=== PATIENT | male | born 1980 | race Caucasian/White ===

== ENCOUNTER 2020-02-14 04:29 | Inpatient (IN) ==
[2020-02-14] MEDS ORDERED: INSULIN REGULAR, HUMAN 1 UNIT/0.01 ML UNIT IV ONE ×2 (04:34→06:02)
[2020-02-14] MEDS ORDERED: 0.9 % SODIUM CHLORIDE 1,000 ML IV ONE ×9 (04:34→20:21)
--- NOTE | 2020-02-14 05:11 | XRay Report ---
CLINICAL INFORMATION: Dyspnea COMPARISON: None. TECHNIQUE: Portable FINDINGS: The heart size, mediastinum and pulmonary vessels are unremarkable. The lungs are clear. There are no effusions. The bones and soft tissues are within normal limits. IMPRESSION: Normal chest. Interpreted and Authenticated by: Les Bryan 02/14/20
[2020-02-14 05:18] LABS: Basophils # (Auto) 0.06 K/mcL (0.00-0.30); Basophils % (Auto) 0.4 % (0.0-2.0); Eosinophils # (Auto) 0 K/mcL (0.00-0.70); Eosinophils % (Auto) 0 % (0.0-7.0); Hematocrit 65.5 % (40.1-51.0); Hemoglobin 18.4 g/dL (13.7-17.5); Lymphocytes # (Auto) 1.19 K/mcL (1.50-4.80); Lymphocytes % (Auto) 7.8 % (15.5-49.0); Mean Cell Volume 103.8 fL (80.0-100.0); Mean Corpuscular HGB Conc 28.1 g/dL (31.0-36.0); Mean Platelet Volume 11.5 fL (7.4-10.4); Monocytes # (Auto) 1.04 K/mcL (0.10-0.90); Monocytes % (Auto) 6.8 % (1.0-12.0); Platelet Count 430 K/mcL (140-440); RBC 6.31 M/mcL (4.63-6.08); Red Cell Distribution Width 13.4 % (11.5-14.5); WBC 15.4 K/mcL (4.50-11.00)
[2020-02-14] MEDS ORDERED: INSULIN REGULAR, HUMAN 50 UNIT in 0.9 % SODIUM CHLORIDE 99.5 ML IV ONE (06:02)
[2020-02-14 06:03] LABS: ALT/SGPT 80 U/l (0-40); AST/SGOT 56 U/l (0-37); Albumin 4.5 gm/dL (3.2-5.2); Albumin/Globulin Ratio 1.4 (1.0-2.3); Alkaline Phosphatase 219 U/L (39-117); Bilirubin,Total 0.4 mg/dL (0.0-1.0); Blood Urea Nitrogen 44 mg/dl (6-20); Calcium 10.3 mg/dl (8.6-10.4); Carbon Dioxide 11 mmol/L (22-30); Chloride 79 mmol/L (96-108); Globulin 3.3 gm/dL (2.2-3.7); Glomerular Filtration Rate 19
[2020-02-14] MEDS ORDERED: VANCOMYCIN 1,000 MG in 0.9 % SODIUM CHLORIDE 250 ML IV ONE (06:05)
[2020-02-14] MEDS ORDERED: LEVOFLOXACIN 750 MG/150 ML BAG IV ONE (06:05)
[2020-02-14] MEDS ORDERED: PIPERACILLIN SODIUM/TAZOBACTAM 3.375 GM in DEXTROSE 5% IN WATER 50 ML IV ONE (06:05)
--- NOTE | 2020-02-14 06:11 | Emergency Department Note ---
Altered Mental Status HPI General Chief Complaint: Altered Mental Status Stated Complaint: altered mental status Time Seen by Provider: 02/14/20 04:34 Source: family, EMS and RN notes reviewed Mode of arrival: EMS Limitations: altered mental status History of Present Illness HPI Narrative: Narrative: This patient was brought in by EMS for altered mental status. Patient cannot really talk to us much. Mother states that the patient has been drinking excessive amounts of fluid for the last couple of months. There is a strong history of diabetes in the family and this patient's blood sugars reading high on the Accu-Chek. Mother does not state any other specific symptoms going on. MD complaint: altered mental status, confusion and decreased responsiveness Onset (ago): month(s) Timing confirmed by: family member Severity: severe Consistency of Symptoms: getting worse Context: unknown (Patient has been drinking excessive fluids for the last couple of months and his blood sugar is registering high on Accu-Chek. Most likely this is diabetic ketoacidosis.) Related Data Home Medications Medication Instructions Recorded Confirmed albuterol sulfate 2 puff INHALATION PRN PRN 02/14/20 02/14/20 amitriptyline 25 mg PO QDAY 02/14/20 02/14/20 amlodipine 50 mg PO QDAY 02/14/20 02/14/20 duloxetine 60 mg PO QDAY 02/14/20 02/14/20 fenofibrate 145 mg PO QDAY 02/14/20 02/14/20 fluticasone propionate 1 puff INHALATION BID 02/14/20 02/14/20 lamotrigine 50 mg PO DAILY 02/14/20 02/14/20 lamotrigine 100 mg PO HS 02/14/20 02/14/20 levocetirizine [Allergy Relief 5 mg PO QDAY 02/14/20 02/14/20 (levocetirizin)] rizatriptan 10 mg PO PRN PRN 02/14/20 02/14/20 Allergies Allergy/AdvReac Type Severity Reaction Status Date / Time red dye Allergy Unknown Verified 02/14/20 07:23 valproic acid Allergy Unknown Unknown Verified 02/14/20 07:23 bha Allergy Unknown Uncoded 02/14/20 07:23 bht Allergy Unknown Uncoded 02/14/20 07:23 msg Allergy Unknown Uncoded 02/14/20 07:23 tbhq Allergy Unknown Uncoded 02/14/20 07:23 Review of Systems ROS ROS Narrative: Narrative: Limitations: ROS unobtainable due to patients medical condition [facility] Narrative Patient History Narrative: Narrative: Medical/Surgical/Family History All Active Problems (Updated 02/14/20 @ 07:46 by José Miguel Rico MD) Diabetic ketoacidosis (Acute) Family History (Updated 02/14/20 @ 06:09 by José Miguel Rico MD) Other Diabetes Social History Smoking Status: Never smoker Exam Narrative Narrative: Narrative: General Limitations: altered mental status General appearance: obtunded and sleepy Head Head: atraumatic, normocephalic and normal inspection Eye Eye: Present normal appearance; Absent scleral icterus and conjunctival injection ENT ENT: Present mucous membranes dry Neck Neck: Present normal inspection Chest Chest: Present normal inspection and symmetric chest wall rise Respiratory Respiratory: Present normal lung sounds bilaterally; Absent respiratory distress, rales/crackles and wheezes Cardiovascular Cardiovascular: Present regular rate, normal rhythm and normal heart sounds Adbominal Abdominal: Present soft; Absent distention and tenderness Skin Skin: Present dry; Absent diaphoresis Course Vital Signs Vital signs: Vital Signs Temperature 98.5 F 02/14/20 04:29 Pulse Rate 122 H 02/14/20 04:29 Respiratory Rate 37 H 02/14/20 04:29 Blood Pressure 120/93 02/14/20 04:29 Pulse Oximetry (%) 91 02/14/20 04:29 Temperature 98.5 F 02/14/20 04:29 Pulse Rate 121 H 02/14/20 07:32 Respiratory Rate 31 H 02/14/20 07:32 Blood Pressure 125/103 02/14/20 07:32 Pulse Oximetry (%) 93 02/14/20 07:32 [facility] MDM Narrative Medical decision making narrative: Narrative: We started insulin and an insulin drip on arrival in the emergency room. Also started hydrating the patient. Within an hour he is able to open his eyes and only say okay. He seemed to be gradually improving. We did do blood cultures and covered him with some antibiotics since his lactic acid was so high. Most likely he is not septic but will cover it anyway. He will be admitted to the ICU by Dr. Dailey. Differential Diagnosis Differential Diagnosis: Combination of polyuria and a blood sugar reading high and Accu-Chek makes diabetic ketoacidosis the primary diagnosis to consider. Lab Data Lab results reviewed: Yes I reviewed the patient's lab results. Lab results narrative: Blood sugar was 1752 with acetone of 9 and lactic acid of 7.7 bicarb of 11. pH was only 7.27 Result diagrams: 02/14/20 04:34 02/14/20 04:34 Labs: Lab Results 02/14/20 02/14/20 02/14/20 Range/Units 04:34 04:34 04:34 WBC 15.4 H (4.50-11.00) K/mcL RBC 6.31 H (4.63-6.08) M/mcL Hgb 18.4 H (13.7-17.5) g/dL Hct 65.5 H (40.1-51.0) % MCV 103.8 H (80.0-100.0) fL MCH 29.2 (26.0-34.0) pg MCHC 28.1 L (31.0-36.0) g/dL RDW 13.4 (11.5-14.5) % Plt Count 430 (140-440) K/mcL MPV 11.5 H (7.4-10.4) fL Gran % 85.0 H (38.0-78.0) % Lymph % (Auto) 7.8 L (15.5-49.0) % [place] % (Auto) 6.8 (1.0-12.0) % Eos % (Auto) 0 (0.0-7.0) % Baso % (Auto) 0.4 (0.0-2.0) % Gran # 13.06 H (1.80-8.00) K/mcL Lymph # (Auto) 1.19 L (1.50-4.80) K/mcL [place] # (Auto) 1.04 H (0.10-0.90) K/mcL Eos # (Auto) 0 (0.00-0.70) K/mcL Baso # (Auto) 0.06 (0.00-0.30) K/mcL VBG Lactic Acid 7.7 H* (0.5-2.0) mmol/L Sodium 131 L (133-145) mmol/L Potassium 5.6 H (3.3-5.1) mmol/L Chloride 79 L (96-108) mmol/L Carbon Dioxide 11 L (22-30) mmol/L Anion Gap 41.0 H (8-16) BUN 44 H (6-20) mg/dl Creatinine 3.8 H (0.7-1.2) mg/dl GFR Calculation 19 Glucose 1750 H* (70-105) mg/dL Calcium 10.3 (8.6-10.4) mg/dl Total Bilirubin 0.4 (0.0-1.0) mg/dL AST 56 H (0-37) U/l ALT 80 H (0-40) U/l Alkaline Phosphatase 219 H (39-117) U/L Total Protein 7.8 (5.9-8.4) gm/dL Albumin 4.5 (3.2-5.2) gm/dL Globulin 3.3 (2.2-3.7) gm/dL Albumin/Globulin Ratio 1.4 (1.0-2.3) Beta-Hydroxybutyrate 9.45 H (< 0.27) mmol/L Radiology Data Radiology results reviewed: Yes I reviewed the patient's radiology results. Radiology results narrative: Chest x-ray is unremarkable CC TIME Critical Care Time Critical Care Time: Yes Total Critical Care Time: 60 Attestation: This patient was nearly comatose from diabetic ketoacidosis and required intensive management. Discharge Plan Patient/Caregiver Discharge Instructions Pt seen by [employer]/PA only: No Clinical Impression: Diabetic ketoacidosis Patient Disposition: Xfer As Inpt ([facility]) Prescriptions: No Action amitriptyline 25 mg Tablet 25 mg PO QDAY RF: 0 lamotrigine 100 mg Tablet 100 mg PO HS RF: 0 lamotrigine 50 mg Tablet,Disintegrating 50 mg PO DAILY RF: 0 duloxetine 60 mg Capsule,Delayed Release(Dr/Ec) 60 mg PO QDAY RF: 0 amlodipine 10 mg Tablet 50 mg PO QDAY RF: 0 fenofibrate 150 mg Capsule 145 mg PO QDAY RF: 0 fluticasone propionate 220 mcg/actuation Hfa Aerosol Inhaler 1 puff INHALATION BID RF: 0 rizatriptan 10 mg Tablet 10 mg PO PRN PRN (Reason: Headache) RF: 0 albuterol sulfate 90 mcg/actuation Hfa Aerosol Inhaler 2 puff INHALATION PRN PRN (Reason: Shortness Of Breath) RF: 0 levocetirizine [Allergy Relief (levocetirizin)] 5 mg Tablet 5 mg PO QDAY RF: 0
[2020-02-14 06:23] LABS: Glucose 1750 mg/dL (70-105)
[2020-02-14 06:28] LABS: Beta Hydroxybutyrate 9.45 mmol/L (< 0.27)
[2020-02-14 08:15] LABS: POC Blood Urea Nitrogen 43 mg/dl (6-20); POC CO2 13 mmol/L (22-30); POC Calcium, Ionized 1.08 mmol/L (1.16-1.32); POC Chloride 111 mmol/L (96-108); POC Creatinine 3.4 mg/dl (0.7-1.2); POC Glucose, Random > 700 mg/dL (70-105); POC Potassium 3.9 mmol/L (3.3-5.1); POC Sodium 143 mmol/L (133-145)
--- NOTE | 2020-02-14 08:17 | Internal Med History&Physical ---
HPI History of Present Illness Patient information: Note initiated : 02/14/20 at 8:17 am Service Date, if different from initiated Date: [] Patient: Valentín Daniel a 39 y/o M admitted on for Altered Mental Status. Chief Complaint: Nausea weakness History of present illness: Mr. Daniel is a 39 year old M with no significant prior medical history other than anxiety disorder/hypertension/migraine who presents to the ER with 2 weeks onset of progressive weakness/nausea that has restricted his activities and has not been able to work at his job. Over the last couple of days he has been increasingly tired extremely thirsty and has been drinking excess amount of fluids. Over the last 12 hours he has become more incoherent lethargic and drowsy. Patient was brought into the ER where initial work-up was consistent with severe DKA with blood sugars over 1700/pH 7.28/creatinine 3.6, lactic acid 7.7/anion gap 41 Patient was started on DKA protocol and subsequently hospitalist service was consulted At the time of my evaluation patient is accompanied with his mother Lyle. She is able to provide most of the history as patient is very drowsy lethargic and barely able to open eyes or respond to questions review of systems. Mother denies noticing fever, rash, substance abuse. Family was wondering about his symptoms that has been progressing and they saw primary care physician yesterday. Review of systems 10 point review system was performed and is negative except for ones cussed above Past medical Prediabetic Obesity HLD HTN Bipolar disorder Migraine Seasonal allergic rhinitis Asthma Gastritis Hepatic steatosis Acute cholecystitis status post surgery 2018 Intermittent headache History of undescended testicle surgery Renal stone surgery family history Multiple family members with history of diabetes Mother Graves' disease/bipolar Father HTN/DM type II Arthritis grandmother Social history No history of smoking alcoholism Works at a grocery store [facility] All Active Problems (Updated 02/14/20 @ 07:46 by José Miguel Rico MD) Diabetic ketoacidosis (Acute) Family History (Updated 02/14/20 @ 06:09 by José Miguel Rico MD) Other Diabetes Social History smoking status: Never smoker MEDS/ALLERGIES Home Medications and Allergies Home Medications Medication Instructions Recorded Confirmed Type albuterol sulfate 2 puff INHALATION PRN PRN 02/14/20 02/14/20 History amitriptyline 25 mg PO QDAY 02/14/20 02/14/20 History amlodipine 50 mg PO QDAY 02/14/20 02/14/20 History duloxetine 60 mg PO QDAY 02/14/20 02/14/20 History fenofibrate 145 mg PO QDAY 02/14/20 02/14/20 History fluticasone propionate 1 puff INHALATION BID 02/14/20 02/14/20 History lamotrigine 50 mg PO DAILY 02/14/20 02/14/20 History lamotrigine 100 mg PO HS 02/14/20 02/14/20 History levocetirizine [Allergy Relief 5 mg PO QDAY 02/14/20 02/14/20 History (levocetirizin)] rizatriptan 10 mg PO PRN PRN 02/14/20 02/14/20 History Allergies Allergy/AdvReac Type Severity Reaction Status Date / Time bupropion [From Wellbutrin] Allergy Severe Swelling Verified 02/14/20 12:00 red dye Allergy Unknown Verified 02/14/20 07:23 valproic acid AdvReac Intermediate Nausea Verified 02/14/20 12:00 bha Allergy Unknown Uncoded 02/14/20 07:23 bht Allergy Unknown Uncoded 02/14/20 07:23 msg Allergy Unknown Uncoded 02/14/20 07:23 tbhq Allergy Unknown Uncoded 02/14/20 07:23 EXAM Constitutional Vitals: Temp Pulse Resp BP Pulse Ox 98.5 F 121 H 31 H 125/103 93 02/14/20 04:29 02/14/20 07:32 02/14/20 07:32 02/14/20 07:32 02/14/20 07:32 Confused lethargic and drowsy Head normocephalic, Oral cavity dry No ear nose discharge Eye movement symmetrical Neck supple no lymphadenopathy S1-S2 tachycardic Tachypneic and labored breathing Pendulous but nontender abdomen Lower extremity no cyanosis clubbing or joint swelling Skin no suspicious lesion Psych anxious and confused Neuro could not be examined but moving all 4 extremities DATA Data Completed and Pending Labs: Labs from last 24 hours 02/14/20 02/14/20 02/14/20 08:06 04:34 04:34 WBC RBC Hgb Hct POC Hct 54.0 MCV MCH MCHC RDW Plt Count MPV Gran % Lymph % (Auto) [place] % (Auto) Eos % (Auto) Baso % (Auto) Gran # Lymph # (Auto) [place] # (Auto) Eos # (Auto) Baso # (Auto) VBG Lactic Acid 7.7 H* POC Sodium 143 Sodium 131 L POC Potassium 3.9 Potassium 5.6 H POC Chloride 111 H Chloride 79 L Carbon Dioxide 11 L POC Total CO2 13 L Anion Gap 41.0 H POC BUN 43 H BUN 44 H Creatinine 3.8 H POC Creatinine 3.4 H GFR Calculation 19 Glucose 1750 H* POC Glucose > 700 H* Calcium 10.3 POC WB Ioniz Calcium 1.08 L Total Bilirubin 0.4 AST 56 H ALT 80 H Alkaline Phosphatase 219 H Total Protein 7.8 Albumin 4.5 Globulin 3.3 Albumin/Globulin Ratio 1.4 Beta-Hydroxybutyrate 9.45 H 02/14/20 04:34 WBC 15.4 H RBC 6.31 H Hgb 18.4 H Hct 65.5 H POC Hct MCV 103.8 H MCH 29.2 MCHC 28.1 L RDW 13.4 Plt Count 430 MPV 11.5 H Gran % 85.0 H Lymph % (Auto) 7.8 L [place] % (Auto) 6.8 Eos % (Auto) 0 Baso % (Auto) 0.4 Gran # 13.06 H Lymph # (Auto) 1.19 L [place] # (Auto) 1.04 H Eos # (Auto) 0 Baso # (Auto) 0.06 VBG Lactic Acid POC Sodium Sodium POC Potassium Potassium POC Chloride Chloride Carbon Dioxide POC Total CO2 Anion Gap POC BUN BUN Creatinine POC Creatinine GFR Calculation Glucose POC Glucose Calcium POC WB Ioniz Calcium Total Bilirubin AST ALT Alkaline Phosphatase Total Protein Albumin Globulin Albumin/Globulin Ratio Beta-Hydroxybutyrate A/P Narrative A/P Narrative: * DKA- initiate management per protocol. Elevated anion gap at pH 7.28, 41/bicarb 11/blood sugar 1750, elevated ketones. On insulin drip. Management per protocol * Acute renal failure, creatinine 3.4. Unclear baseline. Await records from [facility] * Sepsis from unclear source. Start antibiotic coverage after cultures * History of reactive disease continue bronchodilators * Anxiety disorder continue duloxetine * History of hypertension restart amlodipine once able to take orally * Full code * Prophylax Heparin Plan * ICU admit, patient critically ill with severe DKA * DKA management per protocol * Nephrology consult * Aggressive electrolyte replacement * Diabetic education * Keep n.p.o. Time Spent With Patient Time: Total time spent is greater than 50% in coordination of care (as documented) at patient's floor/unit and/or counseling patient: Total time spent with greater than 50% in coordination of care (as documented) at patient's floor/unit and/or counseling patient:: Greater than 35 minutes
[2020-02-14] MEDS ORDERED: amLODIPine 5 MG TABLET PO SCH (09:00)
[2020-02-14] MEDS ORDERED: ALBUTEROL SULFATE 200 PUFF INHALER INH PRN (10:15)
[2020-02-14] MEDS ORDERED: ONDANSETRON 4 MG ODT TABLET SL PRN (10:15)
[2020-02-14] MEDS ORDERED: MELATONIN 3 MG TABLET PO PRN (10:15)
[2020-02-14] MEDS ORDERED: 0.9 % SODIUM CHLORIDE 250 ML IV SCH ×4 (10:15→20:00)
[2020-02-14] MEDS ORDERED: AMITRIPTYLINE 25 MG TABLET PO SCH (10:15)
[2020-02-14] MEDS ORDERED: RIZATRIPTAN 10 MG TABLET PO PRN (10:15)
[2020-02-14] MEDS ORDERED: ACETAMINOPHEN 325 MG TABLET PO PRN (10:15)
[2020-02-14] MEDS ORDERED: POTASSIUM CHLORIDE 60 MEQ in DEXTROSE 5% IN WATER 500 ML IV PRN (10:15)
[2020-02-14] MEDS ORDERED: MULTIVIT,THER IRON,CA,FA & MIN 1 TABLET PO SCH (10:15)
[2020-02-14] MEDS ORDERED: CALCIUM CHLORIDE 1,000 MG/10 ML SYRINGE IV PRN (10:15)
[2020-02-14] MEDS ORDERED: DEXTROSE 5%-1/2NS 1,000 ML IV SCH (10:15)
[2020-02-14] MEDS ORDERED: ONDANSETRON 4 MG/2 ML VIAL IV PRN (10:15)
[2020-02-14] MEDS ORDERED: MAGNESIUM SULFATE 2 GM/50 ML BAG IV PRN (10:15)
[2020-02-14] MEDS ORDERED: POTASSIUM CHLORIDE 20 MEQ PACKET PO PRN (10:15)
[2020-02-14] MEDS ORDERED: POLYETHYLENE GLYCOL 3350 17 GM PACKET PO PRN (10:15)
[2020-02-14] MEDS ORDERED: BISACODYL 10 MG SUPP.RECT PR PRN (10:15)
[2020-02-14] MEDS: 0.45 % SODIUM CHLORIDE 1,000 ML IV SCH ×3 (11:02→21:16)
[2020-02-14] MEDS: ACETAMINOPHEN 650 MG/65 ML BOTTLE IV PRN ×2 (11:04→16:54)
[2020-02-14 11:57] LABS: Beta Hydroxybutyrate 4.16 mmol/L (< 0.27)
[2020-02-14] MEDS: PIPERACILLIN SODIUM/TAZOBACTAM 2.25 GM in DEXTROSE 5% IN WATER 50 ML IV SCH ×2 (12:19→17:40)
[2020-02-14] MEDS: INSULIN REGULAR, HUMAN 50 UNIT in 0.9 % SODIUM CHLORIDE 99.5 ML IV SCH ×2 (12:28→20:12)
[2020-02-14 12:36] LABS: Appearance,Urine CLEAR; Bacteria,Urine 0 /hpf (0); Bilirubin,Urine NEG (NEG); Color,Urine YELLOW; Culture Indicated,Urine NO; Glucose,Urine (UA) >=500 mg/dL (NEG); Ketones,Urine 5/TR mg/dL (NEG); Leukocyte Esterase,Urine NEG /uL (NEG); Nitrate,Urine NEG (NEG); Protein,Urine 30 mg/dL (NEG); Specific Gravity,Urine 1.028 (1.000-1.035); Urine Blood 0.2 mg/dL (<0.03); Urine RBC 1 /hpf (0-1); Urine Squamous Epithelial Cell < 1 /hpf (0-4); Urine WBC 1 /hpf (0-4); Urobilinogen,Urine NEG (NEG)
[2020-02-14 12:46] LABS: Estimated Average Glucose(eAG) 473 mg/dL; Hemoglobin A1C > 18.1 % HGB (4.0-6.0)
[2020-02-14] MEDS: 0.9 % SODIUM CHLORIDE 10 ML SYRINGE IV SCH ×2 (13:00→21:49)
[2020-02-14] MEDS ORDERED: diphenhydrAMINE 50 MG/ML VIAL IV ONE (13:24)
[2020-02-14] MEDS ORDERED: 0.9 % SODIUM CHLORIDE 10 ML SYRINGE IV PRN (13:38)
[2020-02-14 13:52] LABS: ABG Methemoglobin 0.1 % (0.4-1.5); Total Hemoglobin 17.3 gm/dL (13.5-16.5); VBG Base Excess -4.8 (-2.0-2.0); VBG HCO3 19.8 mmol/L (24.0-28.0); VBG Oxygen Saturation 72.6 % (40.0-70.0); VBG PCO2 35.8 mmHg (41.0-51.0); VBG PH 7.36 U (7.32-7.42); VBG PO2 43 mmHg (25-40); VBG Total CO2 20.9 mmol/L (25.0-29.0)
--- NOTE | 2020-02-14 14:03 | General Surgery Procedure Note ---
Date of procedure: Note initiated : 02/14/20 at 2:00 pm Service Date, if different from initiated Date: [] Pre-op diagnosis: diabetic ketoacidosis; renal failure Post-op diagnosis: other (diabetic ketoacidosis; renal failure) Procedure: left subclavian central venous access catheter placement Anesthesia: local (1% Xylocaine local infiltration) Surgeon: Bennie Trejo Pathology: none sent Description of procedure: the patient was significantly disoriented and uncooperative. He was given 25 mg of Benadryl IV just for mild sedation. Under sterile conditions the left subclavian area and neck were prepped and draped. The left subclavian vein was accessed with a single stick. The guidewire was placed in the vein was dilated. The catheter was placed over the guidewire into the superior vena cava. All ports were flushed and aspirated and power ports were placed. The catheter was sutured in place and covered with Tegaderm. Chest x-ray was done to confirm position. Condition: critical Disposition: ICU
[2020-02-14 14:37] LABS: ALT/SGPT 58 U/l (0-40); AST/SGOT 59 U/l (0-37); Albumin 3.4 gm/dL (3.2-5.2); Albumin/Globulin Ratio 1.3 (1.0-2.3); Alkaline Phosphatase 133 U/L (39-117); Bilirubin,Direct 0.2 mg/dL (0.0-0.3); Bilirubin,Total 0.4 mg/dL (0.0-1.0); Blood Urea Nitrogen 51 mg/dl (6-20); Calcium 8.9 mg/dl (8.6-10.4); Carbon Dioxide 19 mmol/L (22-30); Chloride 103 mmol/L (96-108); Globulin 2.6 gm/dL (2.2-3.7); Glomerular Filtration Rate 17; Lactate Dehydrogenase 276 U/L (94-250); Phosphorous 1.1 mg/dL (2.7-4.5); Uric Acid 14.5 mg/dL (2.5-8.0)
[2020-02-14 14:52] LABS: Glucose 1177 mg/dL (70-105); Triglycerides 1087 mg/dl (<150)
--- NOTE | 2020-02-14 14:52 | XRay Report ---
CLINICAL INFORMATION: Central Line Placement COMPARISON: 02/14/2020 FINDINGS: Left subclavian central line tip overlies the azygos SVC junction. There is no pneumothorax, hemorrhage or other common complication. Cardiomediastinal silhouette and pulmonary vessels are normal. Lungs are clear. IMPRESSION: Left subclavian central line tip overlies the SVC azygos junction. No complication line from placement Interpreted and Authenticated by: Les Bryan 02/14/20
--- NOTE | 2020-02-14 15:28 | Cat Scan Report ---
CLINICAL INFORMATION: Sepsis COMPARISON: None. TECHNIQUE: 0.625 mm helical slices were obtained from the lung apices through the subtrochanteric regions of the femurs. Following reconstruction, 2.5 mm sagittal, coronal and axial reformatted images were processed and reviewed at multiple windows and levels. 7 mm MIP reconstructions were obtained through the lungs to optimize nodule detection.The exam was performed using radiation dose optimization techniques including, but not limited to, automated exposure control, adjustment of the mA and/or kV according to patient size and use of iterative reconstruction technique. FINDINGS: Pulmonary parenchymal windows show the lungs are clear. There are no effusions. The mediastinal windows show the heart is normal in size with no calcific plaque in the coronary arteries. The noncontrasted thoracic aorta and pulmonary arteries are normal in diameter. There is no adenopathy in the mediastinal hilar or axillary regions. Esophagus is grossly normal. The thyroid is unremarkable. Left subclavian central line tip is at the brachiocephalic SVC junction.. Abdominal images show moderate hepatomegaly with diffuse fatty change. No focal hepatic lesion. The gallbladder is surgically absent. Intrahepatic and common bile ducts are normal caliber: CBD is 6 mm. There is diffuse inflammation throughout the pancreas with a large amount of fluid in the peripancreatic fat planes distention into the mesentery, lesser sac and both anterior pararenal spaces. Findings compatible with severe pancreatitis. There is 4 mm nonobstructing stone is a mid calyx of the left kidney. The remainder of both kidneys, adrenal glands, spleen and aorta are normal in size configuration and attenuation without focal lesion. There is no free air or adenopathy. Pelvic images show Gilmore catheter properly positioned within the bladder. The urinary bladder is normal. Prostate and seminal vesicles are unremarkable. The stomach, small bowel, appendix region and large bowel are normal. The bone windows show no osseous abnormalities throughout the chest, abdomen or pelvis. IMPRESSION: 1. Severe pancreatitis featuring inflammation throughout the pancreas and large amount of fluid in the peripancreatic fat planes, mesentery, lesser sac and anterior pararenal spaces. Correlate with amylase and lipase. 2. 4 mm nonobstructing stone mid calyx left kidney. 3. Moderate hepatomegaly with diffuse fatty change Interpreted and Authenticated by: Les Bryan 02/14/20
[2020-02-14] MEDS ORDERED: POTASSIUM PHOSPHATE 40 MEQ in DEXTROSE 5% IN WATER 500 ML IV PRN (15:32)
[2020-02-14] MEDS: DOCUSATE SODIUM 100 MG CAPSULE PO SCH ×2 (16:10→21:37)
[2020-02-14] MEDS: FLUTICASONE HFA 220MCG INHALER INH SCH ×2 (16:11→21:37)
[2020-02-14] MEDS: WATER IV PRN ×2 (16:17→20:17)
[2020-02-14] MEDS: DEXTROSE 5% IV PRN ×2 (16:17→20:17)
[2020-02-14] MEDS: POTASSIUM PHOSPHATE IV PRN ×2 (16:17→20:17)
[2020-02-14] MEDS: HEPARIN 5,000 UNIT/ML VIAL SQ SCH ×2 (16:20→21:43)
[2020-02-14] MEDS ORDERED: NOREPINEPHRINE BITARTRATE 4 MG/4 ML VIAL IV ONE (19:43)
--- NOTE | 2020-02-14 19:47 | Nephrology History & Physical ---
HPI History of Present Illness Patient information: Note initiated : 02/14/20 at 7:47 pm Service Date, if different from initiated Date: [] Patient: Valentín Daniel a 39 y/o M admitted on 02/14/20 for Altered Mental Status. Chief Complaint: History of present illness: History obtained from review of chart, discussion with RN/ medical staff as the patient is encephalopathic. Mr. Daniel is a 39 year old M w hx of HTN, pre diabetes, obesity, presented to the ED with fatigue/ thirst/ progressive confusion. He was admitted for management of DKA/ encephalopathy. I was asked to see him for ANTONIA. Below obtained from Dr. Le's note Past medical Prediabetic Obesity HLD HTN Bipolar disorder Migraine Seasonal allergic rhinitis Asthma Gastritis Hepatic steatosis Acute cholecystitis status post surgery 2018 Intermittent headache History of undescended testicle surgery Renal stone surgery family history Multiple family members with history of diabetes Mother Graves' disease/bipolar Father HTN/DM type II Arthritis grandmother Social history No history of smoking alcoholism Works at a [employer] Review of Systems ROS unobtainable: due to mental status PFSH PFSH All Active Problems (Updated 02/14/20 @ 21:07 by Tamika Mak MD) Encephalopathy (Acute) Acidosis, metabolic (Acute) Pancreatitis (Acute) ANTONIA (acute kidney injury) (Acute) Diabetic ketoacidosis (Acute) Family History (Updated 02/14/20 @ 06:09 by José Miguel Rico MD) Other Diabetes Social History smoking status: Never smoker MEDS/ALLERGIES Home Medications and Allergies Home Medications Medication Instructions Recorded Confirmed Type albuterol sulfate 2 puff INHALATION PRN PRN 02/14/20 02/14/20 History amitriptyline 25 mg PO QDAY 02/14/20 02/14/20 History amlodipine 5 mg PO QDAY 02/14/20 02/14/20 History duloxetine 60 mg PO QDAY 02/14/20 02/14/20 History fenofibrate 145 mg PO QDAY 02/14/20 02/14/20 History fluticasone propionate 1 puff INHALATION BID 02/14/20 02/14/20 History lamotrigine 50 mg PO DAILY 02/14/20 02/14/20 History lamotrigine 100 mg PO HS 02/14/20 02/14/20 History levocetirizine [Allergy Relief 5 mg PO QDAY 02/14/20 02/14/20 History (levocetirizin)] rizatriptan 10 mg PO PRN PRN 02/14/20 02/14/20 History Allergies Allergy/AdvReac Type Severity Reaction Status Date / Time bupropion [From Wellbutrin] Allergy Severe Swelling Verified 02/14/20 12:00 red dye Allergy Unknown Verified 02/14/20 07:23 valproic acid AdvReac Intermediate Nausea Verified 02/14/20 12:00 bha Allergy Unknown Uncoded 02/14/20 07:23 bht Allergy Unknown Uncoded 02/14/20 07:23 msg Allergy Unknown Uncoded 02/14/20 07:23 tbhq Allergy Unknown Uncoded 02/14/20 07:23 Physical Examination Vital Signs Vital signs: Temp Pulse Resp BP Pulse Ox 39.6 C H 122 H 34 H 98/76 94 02/14/20 18:06 02/14/20 18:06 02/14/20 18:06 02/14/20 18:06 02/14/20 18:06 General Appearance General appearance: obese (BMI 30.3) EENT EENT: ATNC Additional Exam Additional exam: resp non labored respirations, 5L NC, no adventitous sounds over anterior aspect cv RRR, tachycardia, no edema abdomen soft, distended neuro alert, moves all extremities, confused Results Lab Results Result Diagrams: 02/14/20 04:34 02/14/20 13:11 Lab results: Most recent lab results Calcium 8.9 mg/dl (8.6-10.4) 02/14/20 13:11 Phosphorus 1.1 mg/dL (2.7-4.5) L 02/14/20 13:11 Magnesium 3.2 mg/dL (1.6-2.5) H 02/14/20 13:11 A/P Assessment and plan (1) ANTONIA (acute kidney injury): Status: Acute (2) Pancreatitis: Status: Acute (3) Acidosis, metabolic: Status: Acute Narrative A/P Narrative: Scr 4.1, unknown baseline Scr. non oliguric I/O 7.7L/1.25L ANTONIA multifactorial pre renal 2/2 DKA/ HHS and component of ATN in the setting of pancreatitis. 02/14/2020 ua no hematuria, +30protein CT a/p 02/13 There is 4 mm nonobstructing stone is a mid calyx of the left kidney. The remainder of both kidneys, adrenal glands, spleen and aorta are normal in size configuration and attenuation without focal lesion. *checking osmolality, calculate osmolar gap, received appropriate fluid resuscitation, continues on iv fluids and pressor *repeat RFP patient being transferred to higher level of care. no acute need for dialysis hemodynamics and volume at the time of my visit he was on pressor support. received ~ 8L fluids. acid-base Bicarbonate 19. metabolic acidosis, improving. abg / high b hydroxybutyrate, high lactate - improving BUN/ K 51/4.1 Ca 8.9, Mg 3.2 slightly elevated 2/2 ANTONIA Time Spent With Patient Time: Total time spent is greater than 50% in coordination of care (as documented) at patient's floor/unit and/or counseling patient:
[2020-02-14] MEDS ORDERED: VASOPRESSIN 20 UNIT in DEXTROSE 5% IN WATER 99 ML IV SCH (19:50)
[2020-02-14] MEDS ORDERED: VASOPRESSIN 20 UNIT/ML VIAL ONE (19:56)
[2020-02-14] MEDS ORDERED: NOREPINEPHRINE BITARTRATE 16 MG in 0.9 % SODIUM CHLORIDE 234 ML IV SCH (20:00)
[2020-02-14 20:02] LABS: C-Reactive Protein 4.6 mg/dl (0.0-0.8)
[2020-02-14 20:11] LABS: HDL Cholesterol 14 mg/dl (>40); Non-HDL Cholesterol 245 (LDL TARGET+30); Triglycerides 830 mg/dl (<150)
--- NOTE | 2020-02-14 20:56 | Transfer Summary ---
Discharge Provider Provider Patient information: Note initiated : 02/14/20 at 8:50 pm Service Date, if different from initiated Date: [] Patient: Valentín Daniel a 39 y/o M admitted on 02/14/20 for Altered Mental Status. Chief Complaint: Nausea, confusion Transfer diagnosis * Acute pancreatitis possibly secondary to hypertriglyceridemia. Likely associated hemorrhage with rapid deterioration and multiorgan system failure. * Circulatory shock-status post 9 L crystalloids/continue vasopressors to maintain map goal * Acute renal failure secondary to above. Creatinine 4.1 baseline creatinine 1 * DKA-ongoing management per protocol on insulin drip * Low phosphorus/potassium on aggressive IV replacement Brief hospital course Mr. 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 Over the last couple of days he has been i ncreasingly tired extremely thirsty and has been drinking excessive amount of fluids. Over the last 12 hours he has become more incoherent lethargic and drowsy. Patient was brought into the ER where initial work-up was consistent with severe DKA with blood sugars over 1750/pH 7.28/creatinine 3.6, lactic acid 7.7/anion gap 41 Patient was started on DKA protocol and subsequently hospitalist service was consulted At the time of my evaluation patient is accompanied with his mother Lyle. She is able to provide most of the history as patient is very drowsy lethargic and barely able to open eyes or respond to questions review of systems. Mother denies noticing fever, rash, substance abuse. Family was wondering about his symptoms that has been progressing and they saw primary care physician yesterday. Patient was admitted to ICU. Aggressive management per DKA protocol initiated. CT abdomen pelvis revealed severe pancreatitis, possibly precipitated by hypertriglyceridemia. Per family no history of alcoholism. Continue insulin drip/aggressive crystalloids, change IV fluids to 250/hour following additional 1 L bolus (total 6 L bolus) Around 630 patient's blood pressure started dropping to 70s. Vasopressors initiated after additional 2 L bolus. Total of 9 L crystalloids administered. Case discussed with on-call surgeon who recommended emergent transfer to tertiary center for further management in this young 39-year-old with severe pancreatitis along with multiorgan dysfunction including encephalopathy/acute kidney injury and a high risk mortality. Case was discussed with patient's mother on phone. Subsequently attempted transfer to [facility] in [facility], no beds available. Case discussed with [facility] honing machine operator semiautomatic Dr. Carrasco who accepted this patient for further management. Highly appreciate honing machine operator [employer]ia[employer] help in accepting this critical young patient for further management Date of admission: 02/14/20 10:15 Discharge date: 02/14/20 Consults: 02/14/20 Consult to Physician [CONS] Stat Comment: Consulting Provider: Edgardo Le Reason For Exam: Physician to Consult 02/14/20 13:25 Consult to Physician [CONS] Routine Comment: Consulting Provider: Bennie Trejo Reason For Exam: Physician to Consult Discharge Meds Discharge Medications Home Medications albuterol sulfate 2 puff INHALATION PRN PRN 02/14/20 [History Confirmed 02/14/20 Last Taken Unknown] amitriptyline 25 mg PO QDAY 02/14/20 [History Confirmed 02/14/20 Last Taken Unknown] amlodipine 5 mg PO QDAY 02/14/20 [History Confirmed 02/14/20 Last Taken Unknown] duloxetine 60 mg PO QDAY 02/14/20 [History Confirmed 02/14/20 Last Taken Unknown] fenofibrate 145 mg PO QDAY 02/14/20 [History Confirmed 02/14/20 Last Taken Unknown] fluticasone propionate 1 puff INHALATION BID 02/14/20 [History Confirmed 02/14/20 Last Taken Unknown] lamotrigine 50 mg PO DAILY 02/14/20 [History Confirmed 02/14/20 Last Taken Unknown] lamotrigine 100 mg PO HS 02/14/20 [History Confirmed 02/14/20 Last Taken Unknown] levocetirizine [Allergy Relief (levocetirizin)] 5 mg PO QDAY 02/14/20 [History Confirmed 02/14/20 Last Taken Unknown] rizatriptan 10 mg PO PRN PRN 02/14/20 [History Confirmed 02/14/20 Last Taken Unknown] COURSE Hospital Course Hospital course: . Discharge diagnosis: . Time Spent with Patient Time attestation: Total time spent providing and/or coordinating discharge se rvices: EXAM Constitutional Vitals: Temp Pulse Resp BP Pulse Ox 103.2 F H 122 H 34 H 98/76 94 02/14/20 18:06 02/14/20 18:06 02/14/20 18:06 02/14/20 18:06 02/14/20 18:06 Discharge Data Data Completed and Pending Labs on day of discharge: Labs from last 24 hours 02/14/20 02/14/20 02/14/20 19:52 18:45 18:45 WBC RBC Hgb Hct POC Hct MCV MCH MCHC RDW Plt Count MPV Gran % Lymph % (Auto) [place] % (Auto) Eos % (Auto) Baso % (Auto) Gran # Lymph # (Auto) [place] # (Auto) Eos # (Auto) Baso # (Auto) ABG Methemoglobin VBG pH VBG pCO2 VBG pO2 VBG HCO3 VBG Total CO2 VBG O2 Saturation VBG Base Excess VBG Lactic Acid Carboxyhemoglobin Total Hemoglobin O2 Delivery Level POC Sodium Sodium Pending POC Potassium Potassium Pending POC Chloride Chloride Pending Carbon Dioxide Pending POC Total CO2 Anion Gap Pending POC BUN BUN Pending Creatinine Pending POC Creatinine GFR Calculation Pending Glucose Pending POC Glucose Hemoglobin A1c Estim Average Glucose Osmolality 369 H Uric Acid Calcium Pending POC WB Ioniz Calcium Phosphorus Pending Magnesium Total Bilirubin Direct Bilirubin GGT AST ALT Alkaline Phosphatase Lactate Dehydrogenase C-Reactive Protein Total Protein Albumin Pending Globulin Albumin/Globulin Ratio Triglycerides Cholesterol LDL Cholesterol, Calc Non-HDL Cholesterol HDL Cholesterol Lipase Beta-Hydroxybutyrate Urine Color Urine Appearance Urine pH Ur Specific [place] Urine Protein Urine Glucose (UA) Urine Ketones Urine Occult Blood Urine Nitrate Urine Bilirubin Urine Urobilinogen Ur Leukocyte Esterase Urine RBC Urine WBC Ur Squamous Epith Cells Urine Bacteria Ur Culture Indicated? SARS-CoV-2 (PCR) Pending 02/14/20 02/14/20 02/14/20 18:45 18:45 13:11 WBC RBC Hgb Hct POC Hct MCV MCH MCHC RDW Plt Count MPV Gran % Lymph % (Auto) [place] % (Auto) Eos % (Auto) Baso % (Auto) Gran # Lymph # (Auto) [place] # (Auto) Eos # (Auto) Baso # (Auto) ABG Methemoglobin VBG pH VBG pCO2 VBG pO2 VBG HCO3 VBG Total CO2 VBG O2 Saturation VBG Base Excess VBG Lactic Acid 3.7 H Carboxyhemoglobin Total Hemoglobin O2 Delivery Level POC Sodium Sodium 145 POC Potassium Potassium 4.0 POC Chloride Chloride 103 Carbon Dioxide 19 L POC Total CO2 Anion Gap 23.0 H POC BUN BUN 51 H Creatinine 4.1 H POC Creatinine GFR Calculation 17 Glucose 1177 H* POC Glucose Hemoglobin A1c Estim Average Glucose Osmolality Uric Acid 14.5 H Calcium 8.9 POC WB Ioniz Calcium Phosphorus 1.1 L Magnesium 3.2 H Total Bilirubin 0.4 Direct Bilirubin 0.2 GGT 143 H AST 59 H ALT 58 H Alkaline Phosphatase 133 H Lactate Dehydrogenase 276 H C-Reactive Protein 4.6 H Total Protein 6.0 Albumin 3.4 Globulin 2.6 Albumin/Globulin Ratio 1.3 Triglycerides 830 H 1087 H Cholesterol 259 H LDL Cholesterol, Calc TNP Non-HDL Cholesterol 245 H HDL Cholesterol 14 L Lipase 2244 H Beta-Hydroxybutyrate Urine Color Urine Appearance Urine pH Ur Specific [place] Urine Protein Urine Glucose (UA) Urine Ketones Urine Occult Blood Urine Nitrate Urine Bilirubin Urine Urobilinogen Ur Leukocyte Esterase Urine RBC Urine WBC Ur Squamous Epith Cells Urine Bacteria Ur Culture Indicated? SARS-CoV-2 (PCR) 02/14/20 02/14/20 02/14/20 13:10 11:42 11:42 WBC RBC Hgb Hct POC Hct MCV MCH MCHC RDW Plt Count MPV Gran % Lymph % (Auto) [place] % (Auto) Eos % (Auto) Baso % (Auto) Gran # Lymph # (Auto) [place] # (Auto) Eos # (Auto) Baso # (Auto) ABG Methemoglobin 0.1 L TNP VBG pH 7.36 TNP VBG pCO2 35.8 L TNP VBG pO2 43 H TNP VBG HCO3 19.8 L TNP VBG Total CO2 20.9 L TNP VBG O2 Saturation 72.6 H TNP VBG Base Excess -4.8 L TNP VBG Lactic Acid Carboxyhemoglobin 4.2 H TNP Total Hemoglobin 17.3 H TNP O2 Delivery Level Not Reportable Not Reportable POC Sodium Sodium TNP POC Potassium Potassium TNP POC Chloride Chloride TNP Carbon Dioxide TNP POC Total CO2 Anion Gap TNP POC BUN BUN TNP Creatinine TNP POC Creatinine GFR Calculation TNP Glucose TNP POC Glucose Hemoglobin A1c Estim Average Glucose Osmolality Uric Acid TNP Calcium TNP POC WB Ioniz Calcium Phosphorus TNP Magnesium TNP Total Bilirubin TNP Direct Bilirubin TNP GGT TNP AST TNP ALT TNP Alkaline Phosphatase TNP Lactate Dehydrogenase TNP C-Reactive Protein Total Protein TNP Albumin TNP Globulin TNP Albumin/Globulin Ratio TNP Triglycerides TNP Cholesterol LDL Cholesterol, Calc Non-HDL Cholesterol HDL Cholesterol Lipase Beta-Hydroxybutyrate Urine Color Urine Appearance Urine pH Ur Specific [place] Urine Protein Urine Glucose (UA) Urine Ketones Urine Occult Blood Urine Nitrate Urine Bilirubin Urine Urobilinogen Ur Leukocyte Esterase Urine RBC Urine WBC Ur Squamous Epith Cells Urine Bacteria Ur Culture Indicated? SARS-CoV-2 (PCR) 02/14/20 02/14/20 02/14/20 11:00 10:33 08:06 WBC RBC Hgb Hct POC Hct 54.0 MCV MCH MCHC RDW Plt Count MPV Gran % Lymph % (Auto) [place] % (Auto) Eos % (Auto) Baso % (Auto) Gran # Lymph # (Auto) [place] # (Auto) Eos # (Auto) Baso # (Auto) ABG Methemoglobin VBG pH VBG pCO2 VBG pO2 VBG HCO3 VBG Total CO2 VBG O2 Saturation VBG Base Excess VBG Lactic Acid Carboxyhemoglobin Total Hemoglobin O2 Delivery Level POC Sodium 143 Sodium POC Potassium 3.9 Potassium POC Chloride 111 H Chloride Carbon Dioxide POC Total CO2 13 L Anion Gap POC BUN 43 H BUN Creatinine POC Creatinine 3.4 H GFR Calculation Glucose POC Glucose > 700 H* Hemoglobin A1c > 18.1 H Estim Average Glucose 473 Osmolality Uric Acid Calcium POC WB Ioniz Calcium 1.08 L Phosphorus Magnesium Total Bilirubin Direct Bilirubin GGT AST ALT Alkaline Phosphatase Lactate Dehydrogenase C-Reactive Protein Total Protein Albumin Globulin Albumin/Globulin Ratio Triglycerides Cholesterol LDL Cholesterol, Calc Non-HDL Cholesterol HDL Cholesterol Lipase Beta-Hydroxybutyrate 4.16 H Urine Color Yellow Urine Appearance Clear Urine pH 5.0 Ur Specific [place] 1.028 Urine Protein 30 A Urine Glucose (UA) >=500 A Urine Ketones 5/tr A Urine Occult Blood 0.2 A Urine Nitrate Neg Urine Bilirubin Neg Urine Urobilinogen Neg Ur Leukocyte Esterase Neg Urine RBC 1 Urine WBC 1 Ur Squamous Epith Cells < 1 Urine Bacteria 0 Ur Culture Indicated? No SARS-CoV-2 (PCR) 02/14/20 02/14/20 02/14/20 04:34 04:34 04:34 WBC 15.4 H RBC 6.31 H Hgb 18.4 H Hct 65.5 H POC Hct MCV 103.8 H MCH 29.2 MCHC 28.1 L RDW 13.4 Plt Count 430 MPV 11.5 H Gran % 85.0 H Lymph % (Auto) 7.8 L [place] % (Auto) 6.8 Eos % (Auto) 0 Baso % (Auto) 0.4 Gran # 13.06 H Lymph # (Auto) 1.19 L [place] # (Auto) 1.04 H Eos # (Auto) 0 Baso # (Auto) 0.06 ABG Methemoglobin VBG pH VBG pCO2 VBG pO2 VBG HCO3 VBG Total CO2 VBG O2 Saturation VBG Base Excess VBG Lactic Acid 7.7 H* Carboxyhemoglobin Total Hemoglobin O2 Delivery Level POC Sodium Sodium 131 L POC Potassium Potassium 5.6 H POC Chloride Chloride 79 L Carbon Dioxide 11 L POC Total CO2 Anion Gap 41.0 H POC BUN BUN 44 H Creatinine 3.8 H POC Creatinine GFR Calculation 19 Glucose 1750 H* POC Glucose Hemoglobin A1c Estim Average Glucose Osmolality Uric Acid Calcium 10.3 POC WB Ioniz Calcium Phosphorus Magnesium Total Bilirubin 0.4 Direct Bilirubin GGT AST 56 H ALT 80 H Alkaline Phosphatase 219 H Lactate Dehydrogenase C-Reactive Protein Total Protein 7.8 Albumin 4.5 Globulin 3.3 Albumin/Globulin Ratio 1.4 Triglycerides Cholesterol LDL Cholesterol, Calc Non-HDL Cholesterol HDL Cholesterol Lipase Beta-Hydroxybutyrate 9.45 H Urine Color Urine Appearance Urine pH Ur Specific [place] Urine Protein Urine Glucose (UA) Urine Ketones Urine Occult Blood Urine Nitrate Urine Bilirubin Urine Urobilinogen Ur Leukocyte Esterase Urine RBC Urine WBC Ur Squamous Epith Cells Urine Bacteria Ur Culture Indicated? SARS-CoV-2 (PCR) Discharge Plan Patient/Caregiver Discharge Instructions Activity: other Diet: NPO Prescriptions: No Action amitriptyline 25 mg Tablet 25 mg PO QDAY RF: 0 lamotrigine 100 mg Tablet 100 mg PO HS RF: 0 lamotrigine 50 mg Tablet,Disintegrating 50 mg PO DAILY RF: 0 duloxetine 60 mg Capsule,Delayed Release(Dr/Ec) 60 mg PO QDAY RF: 0 amlodipine 10 mg Tablet 5 mg PO QDAY RF: 0 fenofibrate 150 mg Capsule 145 mg PO QDAY RF: 0 fluticasone propionate 220 mcg/actuation Hfa Aerosol Inhaler 1 puff INHALATION BID RF: 0 rizatriptan 10 mg Tablet 10 mg PO PRN PRN (Reason: Headache) RF: 0 albuterol sulfate 90 mcg/actuation Hfa Aerosol Inhaler 2 puff INHALATION PRN PRN (Reason: Shortness Of Breath) RF: 0 levocetirizine [Allergy Relief (levocetirizin)] 5 mg Tablet 5 mg PO QDAY RF: 0 Follow Up Plan Patient Disposition: [facility]fer [facility] Rehab Potential: Critical I certify that the patient requires SNF services: No Overall status at discharge: patient is not back to baseline Discharge Orders: Discharge Order (Routine); Ordered 02/14/20 Ordered By: Edgardo SEGOVIA VTE Deep Vein Thrombosis/Pulmonary Embolism Present on Admission: No
[2020-02-14] MEDS ORDERED: SENNOSIDES/DOCUSATE SODIUM 1 TAB TABLET PO SCH (21:00)
[2020-02-14] MEDS ORDERED: lamoTRIgine 100 MG TABLET PO SCH (21:00)
[2020-02-14] MEDS ORDERED: 0.9 % SODIUM CHLORIDE 10 ML SYRINGE IV SCH (21:00)
[2020-02-14] MEDS ORDERED: LORazepam 2 MG/ML VIAL IV ONE (21:03)
[2020-02-14] MEDS ORDERED: LORazepam 2 MG/ML VIAL ONE (21:11)
[2020-02-14 21:36] LABS: Calcium 7.4 mg/dl (8.6-10.4)
[2020-02-14 21:41] LABS: Phosphorous 2.4 mg/dL (2.7-4.5)
[2020-02-14 23:16] LABS: ALT/SGPT 41 U/l (0-40); AST/SGOT 65 U/l (0-37); Albumin 2.3 gm/dL (3.2-5.2); Albumin/Globulin Ratio 1.1 (1.0-2.3); Alkaline Phosphatase 74 U/L (39-117); Bilirubin,Direct < 0.2 mg/dL (0.0-0.3); Bilirubin,Total 0.2 mg/dL (0.0-1.0); Blood Urea Nitrogen 43 mg/dl (6-20); Calcium 5.9 mg/dl (8.6-10.4); Carbon Dioxide 15 mmol/L (22-30); Chloride 120 mmol/L (96-108); Globulin 2.1 gm/dL (2.2-3.7); Glomerular Filtration Rate 28; Glucose 485 mg/dL (70-105); Lactate Dehydrogenase 390 U/L (94-250); Phosphorous 4.8 mg/dL (2.7-4.5); Triglycerides 631 mg/dl (<150)
[2020-02-15] MEDS: 0.45 % SODIUM CHLORIDE 1,000 ML IV SCH (00:13)
[2020-02-15] MEDS ORDERED: FENOFIBRATE 43 MG CAPSULE PO SCH (09:00)
[2020-02-15] MEDS ORDERED: lamoTRIgine 25 MG TABLET PO SCH (09:00)
[2020-02-15] MEDS ORDERED: DULoxetine 30 MG CAPSULE PO SCH (09:00)
--- NOTE | 2020-02-20 21:46 | Event Note ---
Event Note Event Note: Patient discharge delayed due to weather condition and unable to [facility]AR[facility]. Will go via fixed wing. Continuing dual pressors to maintain map at goal. Repeat BMP calcium 5.6. Active saponification in light of necrotizing pancreatitis. Continue crystalloids. Map at goal. Remains critically ill. Awaiting transfer. Continue critical care and vasopressor management in the setting of acute necrotizing pancreatitis. Remains very high risk mortality with grim prognosis. Additional critical care time spent in excess of 35 minutes.
== END 2020-02-15 00:04 | disposition short-term general hospital (02) | DRG 438 ==
LOC: ED 04:29 → ICU 10:15
PROVIDERS: ADMIT Internal Medicine; ATTEND Internal Medicine